=== PATIENT | male | born 1960 | race Native Hawaiian/Other Pacific Islander ===

== ENCOUNTER 2022-01-16 14:05 | Outpatient (CLI) | payer BC | END 2022-01-16 19:00 | disposition home or self-care (01) | LOC: RAD 14:05 | PROVIDERS: ATTEND Nurse Practitioner | DX: Z01.818 Encounter for other preprocedural examination (principal) ==

== ENCOUNTER 2022-11-13 13:41 | Outpatient (CLI) | payer OTHER | END 2022-11-13 19:15 | disposition home or self-care (01) | LOC: RAD 13:41 | PROVIDERS: ATTEND Nurse Practitioner | DX: Z01.818 Encounter for other preprocedural examination (principal) ==